=== PATIENT | male | born 1985 | race Caucasian/White ===

== ENCOUNTER 2018-01-26 16:38 | Emergency (ER) | payer OTHER ==
[2018-01-26 17:17] LABS: Urine Blood NEGATIVE (NEG); Urine Glucose TRACE (NEG); Urine Protein NEGATIVE (NEG); Urine Specific Gravity 1.025 (1.005-1.030); Urine pH 5.5 (5.0-7.0)
[2018-01-26] MEDS ORDERED: NA CHLORIDE 0.9% 1,000 ML ONE (17:45)
[2018-01-26] MEDS ORDERED: KETOROLAC 30 MG/ML INJ ONE (17:45)
--- NOTE | 2018-01-26 17:48 | RAD REPORT ---
EXAM DESCRIPTION: CT - Stone Protocol - 01/26/2018 5:33 pm CLINICAL HISTORY: Back pain, left flank pain, left CVA tenderness COMPARISON: Lumbar spine April 2017 TECHNIQUE: Axial 5 mm thick images were obtained without oral or IV contrast. The [id number]-[id number] span s the entirety of the system including uppermost abdomen and lung bases. All CT scans are performed using dose optimization technique as appropriate and may include automated exposure control or mA/KV adjustment according to patient size. FINDINGS: No hydronephrosis is present and no obstructing ureteral calculi. No suspicious renal mass es. Isodense masses and pyelonephritis are not excluded on a stone protocol CT scan. No urinary bladd er suspicious finding. Imaged portions of the liver, spleen and pancreas show no suspicious findings on non-contrast imaging . No gallbladder or biliary tree abnormality identified. No significant adrenal finding. No suspicious bowel findings. Appendix is normal. No hernia, mass or bulky lymphadenopathy noted. No free air, free fluid or inflammatory stranding. No acute bone findings seen. L5-S1 mild disc bulge and loss in disc height. Sclerotic focus in the kam perior right ilium unchanged from April. Significance is doubtful. No pars defects. No paraspinal mass or hematoma. IMPRESSION: Negative CT stone protocol study for acute finding. Isodense masses and pyelonephritis are not excluded on stone protocol technique. L5-S1 disc space narrowing is evident with suspected disc bulge. Follow-up nonemergent MR of lumbar s pine imaging can be performed as clinical findings warrant.
[2018-01-26 17:54] LABS: Albumin 4.3 g/dL (3.4-5.0); Bilirubin Direct 0.2 mg/dL (0-0.2); Potassium 3.9 mmol/L (3.5-5.1); Protein, Total 7.8 g/dL (6.4-8.2)
[2018-01-26 17:59] LABS: Absolute Lymphocytes (CBC) 1.2 K/uL (0.7-4.9); Absolute Monocytes 0.5 K/uL (0.1-1.3); Absolute Neutrophil 2.6 K/uL (1.8-8.0); Basophils % 0.7 % (0-1.3); Eosinophils % 3.1 % (0-4.4); Hematocrit 46.6 % (39.6-49.0); Lymphocytes % 27.3 % (15.3-44.8); MCH 32.8 pg (27.0-35.0); MCV 93.9 fL (80-100); MPV 7.6 fL (7.6-11.3); Monocytes % 11.4 % (3.3-12.3); RBC Red Blood Cell Count 4.96 M/uL (4.33-5.43)
--- NOTE | 2018-01-26 18:14 | ER ---
Nurse's Notes [facility] Name: Mt Swain Age: 32 yrs Sex: Male : 1985 Arrival Date: 01/26/2018 Time: 16:39 Bed 14 Private MD: Diagnosis: Left flank Pain, Musculoskeletal Pain Presentation: 01/26 16:43 Presenting complaint: Patient states: Left flank/back pain for 3 days with no la1 associated sx. Transition of care: patient was not received from another setting of care. Onset of symptoms was January 26, 2018. Risk Assessment: Do you want to hurt yourself or someone else? Patient reports no desire to harm self or others. Initial Sepsis Screen: Does the patient meet any 2 criteria? No. Patient's initial sepsis screen is negative. Does the patient have a suspected source of infection? No. Patient's initial sepsis screen is negative. Care prior to arrival: None. 16:43 Method Of Arrival: Ambulatory la1 16:43 Acuity: MERRITT 3 la1 Historical: - Allergies: 16:43 No Known Allergies; la1 - Home Meds: 16:50 None [Active]; rb1 - PMHx: 16:43 None; la1 - PSHx: 16:50 None; rb1 - Immunization history:: Adult Immunizations up to date. - Social history:: Smoking status: Patient uses tobacco products, smokes one pack cigarettes per day. - Ebola Screening: : No symptoms or risks identified at this time. Screenin:50 Abuse screen: Denies threats or abuse. Nutritional screening: No deficits noted. rb1 Tuberculosis screening: No symptoms or risk factors identified. Fall Risk None identified. Assessment: 16:50 General: Appears in no apparent distress. comfortable, Behavior is calm, cooperative, rb1 Denies fever. Pain: Complains of pain in left flank Pain currently is 4 out of 10 on a pain scale. Pain began x 3 days. Neuro: Level of Consciousness is awake, alert, obeys commands, Oriented to person, place, time, situation. Cardiovascular: Capillary refill < 3 seconds is brisk in bilateral fingers. Respiratory: Airway is patent Respiratory effort is even, unlabored, Respiratory pattern is regular, symmetrical. GI: No signs and/or symptoms were reported involving the gastrointestinal system. : Reports decrease in urine output Denies burning with urination, pain with urination. Derm: Skin is dry, Skin is normal, Skin temperature is warm. 17:25 Reassessment: Pt. went to CT. rb1 17:46 Reassessment: Patient appears in no apparent distress at this time. Patient and/or rb1 family updated on plan of care and expected duration. Pain level reassessed. Patient is alert, oriented x 3, equal unlabored respirations, skin warm/dry/pink. 18:15 Reassessment: Patient appears in no apparent distress at this time. No changes from rb1 previously documented assessment. Vital Signs: 16:43 BP 129 / 90; Pulse 103; Resp 16; Temp 97.6(TE); Pulse Ox 100% on R/A; Weight 65.77 kg; la1 Height 5 ft. 10 in. (177.80 cm); Pain 4/10; 17:43 BP 124 / 91; Pulse 65; Resp 16; Pulse Ox 100% on R/A; rb1 18:35 BP 119 / 85; Pulse 65; Resp 17; Pulse Ox 100% on R/A; rb1 16:43 Body Mass Index 20.81 (65.77 kg, 177.80 cm) la1 ED Course: 16:39 Patient arrived in ED. as 16:42 Tony Comer MD is Attending Physician. kdr 16:43 Arm band placed on left wrist. la1 16:44 Triage completed. la1 16:49 Sheba Cerrato, RN is Primary Nurse. rb1 16:50 Patient has correct armband on for positive identification. Bed in low position. Call rb1 light in reach. Side rails up X 1. Pulse ox on. NIBP on. 17:27 CBC with Diff Sent. ds4 17:27 Basic Metabolic Panel Sent. ds4 17:27 Hepatic Function Sent. ds4 17:27 Lipase Sent. ds4 17:27 Creatinine for Radiology Sent. ds4 17:27 Basic Metabolic Panel Sent. ds4 17:27 Inserted saline lock: 18 gauge in right antecubital area, using aseptic technique. ds4 Blood collected. 17:33 CT completed. Patient moved to CT via wheelchair. Patient moved back from CT. cw1 17:34 CT Stone Protocol In Process Unspecified. EDMS 17:37 Lipase Sent. ds4 17:37 CBC with Diff Sent. ds4 17:37 Hepatic Function Sent. ds4 17:37 Creatinine for Radiology Sent. ds4 17:37 Basic Metabolic Panel Sent. ds4 18:35 No provider procedures requiring assistance completed. IV discontinued, intact, rb1 bleeding controlled, No redness/swelling at site. Pressure dressing applied. Administered Medications: 17:45 Drug: TORadol 30 mg Route: IVP; Site: right antecubital; rb1 18:00 Follow up: Response: No adverse reaction; Pain is decreased rb1 17:45 Drug: NS 0.9% 1000 ml Route: IV; Rate: 1 bolus; Site: right antecubital; rb1 18:25 Follow up: IV Status: Completed infusion rb1 Outcome: 18:14 Discharge ordered by . kdr 18:35 Discharged to home ambulatory. rb1 18:35 Condition: stable 18:35 Discharge instructions given to patient, Instructed on discharge instructions, follow up and referral plans. medication usage, Demonstrated understanding of instructions, follow-up care, medications, Prescriptions given X 3. 18:36 Patient left the ED. rb1 Signatures: Dispatcher [employer] EDMS Tony Comer MD MD kdr Nikki Ratliff Crystal cw1 Pan Vega ds4 Geo Franklin, RN RN la1 Sheba Cerrato, RN RN rb1
--- NOTE | 2018-01-26 18:15 | EDPHYS ---
Physician Documentation [facility] Name: Mt Swain Age: 32 yrs Sex: Male : 1985 Arrival Date: 01/26/2018 Time: 16:39 Bed 14 Private MD: ED Physician Tony Comer HPI: 01/26 17:17 This 32 yrs old Male presents to ER via Ambulatory with complaints of Flank kdr Pain. 17:17 The patient complains of pain in the left mid back. The pain does not radiate. Onset: kdr The symptoms/episode began/occurred gradually, 3 day(s) ago. Modifying factors: The symptoms are alleviated by nothing. the symptoms are aggravated by nothing. Associated signs and symptoms: Pertinent positives: nausea, Decreased output. Severity of pain: At its worst the pain was moderate in the emergency department the pain is unchanged. The patient has not experienced similar symptoms in the past. The patient has not recently seen a physician. Originally thought he had pulled a muscle. Historical: - Allergies: 16:43 No Known Allergies; la1 - Home Meds: 16:50 None [Active]; rb1 - PMHx: 16:43 None; la1 - PSHx: 16:50 None; rb1 - Immunization history:: Adult Immunizations up to date. - Social history:: Smoking status: Patient uses tobacco products, smokes one pack cigarettes per day. - Ebola Screening: : No symptoms or risks identified at this time. ROS: 17:17 Constitutional: Negative for fever, chills, and weight loss, Eyes: Negative for injury, kdr pain, redness, and discharge, ENT: Negative for injury, pain, and discharge, Neck: Negative for injury, pain, and swelling, Cardiovascular: Negative for chest pain, palpitations, and edema, Respiratory: Negative for shortness of breath, cough, wheezing, and pleuritic chest pain, Abdomen/GI: Negative for abdominal pain, nausea, vomiting, diarrhea, and constipation, MS/Extremity: Negative for injury and deformity, Skin: Negative for injury, rash, and discoloration, Neuro: Negative for headache, weakness, numbness, tingling, and seizure activity. Psych: Negative for depression, anxiety, suicide ideation, homicidal ideation, and hallucinations, Allergy/Immunology: Negative for hives, rash, and allergies, Endocrine: Negative for neck swelling, polydipsia, polyuria, polyphagia, and marked weight changes, Hematologic/Lymphatic: Negative for swollen nodes, abnormal bleeding, and unusual bruising. 17:17 Back: Positive for pain at rest, pain with movement, flank pain, on the left, Negative for injury or acute deformity, decreased range of motion. Exam: 17:17 Constitutional: This is a well developed, well nourished patient who is awake, alert, kdr and in no acute distress. Head/Face: Normocephalic, atraumatic. Eyes: Pupils equal round and reactive to light, extra-ocular motions intact. Lids and lashes normal. Conjunctiva and sclera are non-icteric and not injected. Cornea within normal limits. Periorbital areas with no swelling, redness, or edema. Neck: Trachea midline, no thyromegaly or masses palpated, and no cervical lymphadenopathy. Supple, full range of motion without nuchal rigidity, or vertebral point tenderness. No Meningismus. Chest/axilla: Normal chest wall appearance and motion. Nontender with no deformity. No lesions are appreciated. Cardiovascular: Regular rate and rhythm with a normal S1 and S2. No gallops, murmurs, or rubs. Normal PMI, no JVD. No pulse deficits. Respiratory: Lungs have equal breath sounds bilaterally, clear to auscultation and percussion. No rales, rhonchi or wheezes noted. No increased work of breathing, no retractions or nasal flaring. Abdomen/GI: Soft, non-tender, with normal bowel sounds. No distension or tympany. No guarding or rebound. No evidence of tenderness throughout. Back: No spinal tenderness. No costovertebral tenderness. Full range of motion. Skin: Warm, dry with normal turgor. Normal color with no rashes, no lesions, and no evidence of cellulitis. MS/ Extremity: Pulses equal, no cyanosis. Neurovascular intact. Full, normal range of motion. Neuro: Awake and alert, GCS 15, oriented to person, place, time, and situation. Cranial nerves II-XII grossly intact. Motor strength 5/5 in all extremities. Sensory grossly intact. Cerebellar exam normal. Normal gait. Psych: Awake, alert, with orientation to person, place and time. Behavior, mood, and affect are within normal limits. Vital Signs: 16:43 BP 129 / 90; Pulse 103; Resp 16; Temp 97.6(TE); Pulse Ox 100% on R/A; Weight 65.77 kg; la1 Height 5 ft. 10 in. (177.80 cm); Pain 4/10; 17:43 BP 124 / 91; Pulse 65; Resp 16; Pulse Ox 100% on R/A; rb1 18:35 BP 119 / 85; Pulse 65; Resp 17; Pulse Ox 100% on R/A; rb1 16:43 Body Mass Index 20.81 (65.77 kg, 177.80 cm) la1 MDM: 17:17 Data reviewed: vital signs, nurses notes, lab test result(s), radiologic studies. kdr 18:12 ED course: The patient states that he is feeling better. The pain is not throbbing as kdr it had before. He had no other concerns or complaints at this time. 18:14 Patient medically screened. [facility] 01/26 16:59 Order name: Urine Dipstick--Ancillary (enter results); Complete Time: 17:49 1 01/26 17:10 Order name: Basic Metabolic Panel [facility] 01/26 17:10 Order name: CBC with Diff; Complete Time: 18:05 [facility] 01/26 17:10 Order name: Creatinine for Radiology; Complete Time: 18:05 [facility] 01/26 17:10 Order name: Hepatic Function; Complete Time: 18:05 [facility] 01/26 17:10 Order name: Lipase; Complete Time: 18:05 [facility] 01/26 17:00 Order name: Urine Dipstick-Ancillary (obtain specimen); Complete Time: 17:00 em1 01/26 17:10 Order name: IV Saline Lock; Complete Time: 17:27 [facility] 01/26 17:10 Order name: Labs collected and sent; Complete Time: 17:27 [facility] 01/26 17:10 Order name: CT Stone Protocol; Complete Time: 17:49 [facility] 01/26 17:11 Order name: Basic Metabolic Panel; Complete Time: 18:05 EDMS Administered Medications: 17:45 Drug: TORadol 30 mg Route: IVP; Site: right antecubital; rb1 18:00 Follow up: Response: No adverse reaction; Pain is decreased rb1 17:45 Drug: NS 0.9% 1000 ml Route: IV; Rate: 1 bolus; Site: right antecubital; rb1 18:25 Follow up: IV Status: Completed infusion rb1 Disposition: 11/04/18 18:14 Discharged to Home. Impression: Left flank Pain, Musculoskeletal Pain. - Condition is Stable. - Discharge Instructions: Musculoskeletal Pain, Flank Pain, [id number]. - Prescriptions for Ibuprofen 800 mg Oral Tablet - take 1 tablet by ORAL route every 12 hours As needed take with food; 14 tablet. Cyclobenzaprine 10 mg Oral Tablet - take 1 tablet by ORAL route every 8 hours As needed; 15 tablet. Tramadol 50 mg Oral Tablet - take 1 tablet by ORAL route every 8 hours as needed; 16 tablet. - Medication Reconciliation Form, Thank You Letter, Antibiotic Education, Prescription Opioid Use, Work release form form. - Follow up: Private Physician; When: 2 - 3 days; Reason: If symptoms return, Further diagnostic work-up, Recheck today's complaints, Continuance of care, Re-evaluation by your physician. - Problem is new. - Symptoms have improved. Signatures: Dispatcher [employer] EDMS Tony Comer MD MD kdr Martinez, Eric em1 Geo Franklin RN RN la1 Sheba Cerrato, HYACINTH RN rb1 Corrections: (The following items were deleted from the chart) 18:36 18:14 01/26/2018 18:14 Discharged to Home. Impression: Left flank Pain, Musculoskeletal rb1 Pain. Condition is Stable. Forms are Medication Reconciliation Form, Thank You Letter, Antibiotic Education, Prescription Opioid Use. Follow up: Private Physician; When: 2 - 3 days; Reason: If symptoms return, Further diagnostic work-up, Recheck today's complaints, Continuance of care, Re-evaluation by your physician. Problem is new. Symptoms have improved. kdr
== END 2018-01-26 18:36 | disposition home or self-care (01) ==
LOC: ER 16:38
DX: M79.18 Myalgia, other site (principal); F17.210 Nicotine dependence, cigarettes, uncomplicated
CPT/HCPCS: 36415; 74176; 76377; 80048; 80076; 81003; 83690; 85025; 96361; 96374; 99284; J7030